=== PATIENT | female | born 1940 | race Caucasian/White ===

== ENCOUNTER → 2019-07-06 | Outpatient (CLI) | payer MEDICARE, BC ==
--- NOTE | 2019-07-06 12:56 | CT ---
EXAMINATION TYPE: CT chest w con DATE OF EXAM: 07/06/2019 COMPARISON: No films are available. Report from [facility] labeled with the patient' s name dated 06/28/2013 is reviewed. HISTORY: Solitary pulmonary nodule. CT DLP: 506.6 mGycm, Automated exposure control for dose reduction was used. CONTRAST: Performed injected with 100 mL of Isovue M300. TECHNIQUE: Axial images were obtained at 5 mm thick sections. Reconstructed images are reviewed on [employer] computer in the coronal plane. FINDINGS: Portion of the thyroid visualized is normal. There is a triangular area of increased density anterior left upper lobe. This measures approximately 3.9 x 3.8 cm in size. Series 4 image 19. Infectious etiology and neoplasm are within the differentia l. Follow-up to clearing is recommended. This may have been present previously by report. There is a 0.4 cm nodule in the periphery of the right lower lobe. This may have been present previou sly by report. No enlarged mediastinal or hilar adenopathy is evident. The ascending aorta diameter at the level o f the main pulmonary artery is 3.3 cm. The main pulmonary artery diameter at the bifurcation is 3.3 cm. There is a small hiatal hernia present. Limited CT sections are obtained through the upper abdomen. Abdomen is essentially unremarkable. IMPRESSIONS: 1. Focal infiltrate versus infiltrating mass anterior left upper lobe. Follow-up is recommended. This appears to been present in the prior report. 2. Suspected stable nodule posterior lateral right lung by report.
--- NOTE | 2019-07-07 15:01 | ECHOF ---
Referral Reason:R01.1 cardiac murmur MEASUREMENTS -------- HEIGHT: 175.3 cm WEIGHT: 108.9 kg BP: IVSd: 1.4 cm (0.6 - 1.1) LVIDd: 4.0 cm (3.9 - 5.3) LVPWd: 1.6 cm (0.6 - 1.1) IVSs: 2.0 cm LVIDs: 2.5 cm LVPWs: 1.9 cm LAESV Index (A-L): 38.72 ml/m Ao Diam: 2.9 cm (2.0 - 3.7) AV Cusp: 1.9 cm (1.5 - 2.6) LA Diam: 4.4 cm (2.7 - 3.8) MV EXCURSION: 15.009 mm (> 18.000) MV EF SLOPE: 89 mm/s (70 - 150) EPSS: 0.4 cm MV E Leroy: 1.08 m/s MV DecT: 212 ms MV A Leroy: 1.00 m/s MV E/A Ratio: 1.08 RAP: 5.00 mmHg RVSP: 35.81 mmHg FINDINGS -------- Sinus rhythm. This was a technically difficult study with suboptimal apical views. The left ventricular size is normal. There is moderate concentric left ventricular hypertrophy. O verall left ventricular systolic function is normal with, an EF between 60 - 65 %. Left ventricular fillimg pressure cannot be estimated due to severe mitral annular calcification. The right ventricle is normal in size. LA is moderately dilated 34-39 ml/m2 The right atrial size is normal. 5.0mg of Lumason was utilized for enhancement of images Interatrial and interventricular septum intact. The aortic valve is trileaflet and appears structurally normal. There is no evidence of aortic regu rgitation. There is no evidence of aortic stenosis. The mitral valve leaflets are mildly thickened. Severe mitral annular calcification present. Mode rate mitral regurgitation is present. Mild tricuspid regurgitation present. There is borderline pulmonary artery hypertension. The righ t ventricular systolic pressure, as measured by Doppler, is 35.81mmHg. Trace/mild (physiologic) pulmonic regurgitation. The aortic root size is normal. IVC Not well visulized. There is no pericardial effusion. CONCLUSIONS -------- 1. Sinus rhythm. 2. This was a technically difficult study with suboptimal apical views. 3. The left ventricular size is normal. 4. There is moderate concentric left ventricular hypertrophy. 5. Overall left ventricular systolic function is normal with, an EF between 60 - 65 %. 6. Left ventricular fillimg pressure cannot be estimated due to severe mitral annular calcification. 7. The right ventricle is normal in size. 8. LA is moderately dilated 34-39 ml/m2 9. The right atrial size is normal. 10. 5.0mg of Lumason was utilized for enhancement of images 11. Interatrial and interventricular septum intact. 12. The aortic valve is trileaflet and appears structurally normal. 13. There is no evidence of aortic regurgitation. 14. There is no evidence of aortic stenosis. 15. The mitral valve leaflets are mildly thickened. 16. Severe mitral annular calcification present. 17. Moderate mitral regurgitation is present. 18. Mild tricuspid regurgitation present. 19. There is borderline pulmonary artery hypertension. 20. The right ventricular systolic pressure, as measured by Doppler, is 35.81mmHg. 21. Trace/mild (physiologic) pulmonic regurgitation. 22. The aortic root size is normal. 23. IVC Not well visulized. 24. There is no pericardial effusion. ADAPTIVE PHYSICAL EDUCATOR: Shawanda Lucas RDCS
== END | disposition home or self-care (01) ==
LOC: RADECHMAIN 10:53
PROVIDERS: ATTEND Nurse Practitioner
DX: R91.1 Solitary pulmonary nodule (principal); I08.1 Rheumatic disorders of both mitral and tricuspid valves
CPT/HCPCS: 82565; 84520; 71260; 36415; C8929; Q9950; Q9967; 93306

== ENCOUNTER → 2019-09-25 | Outpatient (CLI) | payer MEDICARE, BC ==
--- NOTE | 2019-09-25 12:33 | CT ---
EXAMINATION TYPE: CT chest w con DATE OF EXAM: 09/25/2019 COMPARISON: July 06, 2019 HISTORY: abn findings of lung field CT DLP: 488.2 mGycm Automated exposure control for dose reduction was used. CONTRAST: CT scan of the chest is performed with IV Contrast, patient injected with 80 mL of Isovue 300. FINDINGS: LUNGS: There is a stable wedge-shaped area of opacity left upper lobe which is likely in the basis of postinflammatory change rather than active infection or neoplasm. Follow-up in 6 months is advised a s a precautionary measure. Stable calcified right lower lobe pulmonary nodule measures 4 mm. No addit ional nodules seen. No pleural effusion or airspace consolidation identified. MEDIASTINUM: There are no greater than 1 cm hilar or mediastinal lymph nodes. No pericardial effusi on is seen. Thoracic aorta is of normal caliber. The heart is not enlarged. UPPER ABDOMEN: No significant abnormality appreciated. OTHER: No additional significant abnormality is seen. IMPRESSION: There is a stable wedge-shaped area of opacity left upper lobe which is likely in the ba sis of postinflammatory change rather than active infection or neoplasm. Follow-up in 6 months is adv ised as a precautionary measure.
== END | disposition home or self-care (01) ==
LOC: RADCTMAIN 10:13
PROVIDERS: ATTEND Family Medicine
DX: R91.8 Other nonspecific abnormal finding of lung field (principal)
CPT/HCPCS: 82565; 84520; 71260; 36415; Q9967

== ENCOUNTER → 2020-04-07 | Outpatient (CLI) | payer MEDICARE, BC ==
--- NOTE | 2020-04-07 12:07 | CT ---
EXAMINATION TYPE: CT chest w con DATE OF EXAM: 04/07/2020 COMPARISON: 520 HISTORY: follow up to lung nodule CT DLP: 659 mGycm Automated exposure control for dose reduction was used. CONTRAST: CT scan of the chest is performed with IV Contrast, patient injected with 80 mL of Isovue 300. 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 No focal consolidation. No volume loss or pleural effusion. Granuloma right lower lobe. There is no pleural e ffusion or pneumothorax seen. The tracheobronchial tree is patent. MEDIASTINUM: There are no greater than 1 cm hilar or mediastinal lymph nodes. No pericardial effusi on is seen. Thoracic aorta is of normal caliber. The heart is not enlarged. Small sliding-type hiata l hernia is noted. UPPER ABDOMEN: No significant abnormality appreciated. OTHER: No additional significant abnormality is seen. 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
== END | disposition home or self-care (01) ==
LOC: RADCTMAIN 10:43
PROVIDERS: ATTEND Nurse Practitioner
DX: J84.10 Pulmonary fibrosis, unspecified (principal)
CPT/HCPCS: 82565; 84520; 71260; 36415; Q9967

== ENCOUNTER → 2020-12-11 | Outpatient (CLI) | payer MEDICARE, BC ==
--- NOTE | 2020-12-11 15:08 | XR ---
Lumbosacral spine HISTORY: Back pain, M 54.5 5 views of the lumbar spine There is a levoscoliosis centered at L3-4. Multilevel spondylosis is present. There is no evident spo ndylolysis or spondylolisthesis. Loss of disc height is present at intervertebral levels, vacuum phen omenon present at L3-4, L4-5. Bone mineralization is reduced. Sclerosis present in the posterior [place] ents of the lower lumbar spine. Apical scarring calcifications present in the aorta iliac distributio n. impression: Osteopenia, degenerative disc disease, facet arthropathy and scoliosis.
== END | disposition home or self-care (01) ==
LOC: RADXRMAIN 11:31
PROVIDERS: ATTEND Family Medicine
DX: M51.36 Other intervertebral disc degeneration, lumbar region (principal); M85.88 Other specified disorders of bone density and structure, other site; M46.96 Unspecified inflammatory spondylopathy, lumbar region; M41.86 Other forms of scoliosis, lumbar region; Z85.3 Personal history of malignant neoplasm of breast
CPT/HCPCS: 72110

== ENCOUNTER → 2024-03-01 | Outpatient (CLI) | payer MEDICARE ==
--- NOTE | 2024-03-01 14:19 | US ---
EXAMINATION TYPE: US arterial LE single level DATE OF EXAM: 03/01/2024 1:56 PM CLINICAL INDICATION: Female, 83 years old with history of I73.9 PVD M79.605 PAIN IN LEFT LEG; muscle cramps at night History of: Smoker: No Hypertension: Yes Diabetic: No Hyperlipidemia: Yes TIA/CVA: No Previous Vascular Surgery: No CAD: No IN: No Vascular Ulcers: Right anterior calf Claudication: No Gangrene: No Doppler Waveforms: Right: Multiphasic Left: Multiphasic Right Brachial Pressure: 142 Left Brachial Pressure: 145 Ankle-Brachial Indices: Right: Not able to occlude Left: Not able to occlude (Vessel hardening > 1.4; Normal 0.9 - 1.4, Moderate 0.7 - 0.9, Severe 0.5-0.7) Toe Brachial Indices: Right: Not done Left: Not done IMPRESSION: Bilateral lower extremity multiphasic waveforms however unable to occlude to obtain ankl e brachial indices. This may be related to hypertension and/or vascular calcification. This could be further evaluated with CTA. [facility], , 03/01/2024 2:17 PM
== END | disposition home or self-care (01) ==
LOC: RADUSWWP 13:25
PROVIDERS: ATTEND Family Medicine
CPT/HCPCS: 93922

== ENCOUNTER 2024-12-03 11:31 | Day surgery (SDC) | payer MEDICARE ==
[2024-11-28 15:15] VITALS: BMI 34.0
[~2024-12-03 11:31] MED LIST: LACTATED RINGERS 1,000 ML IV SCH; LIDOCAINE 1% (10MG/ML) FOR IV START INTRADERMA PRN
[2024-12-03 12:38] VITALS: TEMP 98.1
[2024-12-03] MEDS: IV FLUID CONTINUATION 1,000 ML IV ONE (12:45)
[2024-12-03] MEDS: SODIUM CHLORIDE 0.9% 500 ML 500 ML IV SCH (12:46)
[2024-12-03] MEDS ORDERED: PROPOFOL 10 MG/ML 20 ML VIAL IV ONE (12:59)
[2024-12-03] MEDS ORDERED: ATROPINE SULFATE 0.1 MG/ML 10ML SYRINGE ONE (12:59)
[2024-12-03] MEDS: BENZOCAINE SPRAY 1 EACH TOPICAL STA (13:02)
--- NOTE | 2024-12-03 14:21 | P.TEE ---
Date of Procedure: 12/03/24 Description of Procedure(s): Procedure performed: 1. Transesophageal Echocardiogram. 2. Synchronized Cardioversion. 3. Bubble study indication Indications: Persistent atrial fibrillation Consent: I have discussed the risks, benefits and alternative therapies for the above-mentioned procedure. The patient has indicated understanding and acceptance of the risks of the procedure. Signed consent was obtained and was placed in the paper chart. Moderate conscious sedation: Moderate conscious sedation was administered by anesthesia, see separate report. Procedural Steps: Timeout was performed in usual fashion. Patient's heart rate, blood pressure, oxygen saturation and ECG were monitored. After achieving appropriate moderate conscious sedation, GUILHERME GUILHERME probe was advanced without difficulty and without any immediate complications to the esophagus. GUILHERME study was performed with color flow doppler, pulsed wave doppler and continuous wave doppler. Agitated saline bubbles were injected to assess for any intra-atrial shunt. The probe was then removed. SYNCHRONIZED CARDIOVERSION After making sure that there is no evidence of intracardiac thrombus, pacer pads were placed and secured on patients chest and back. Synchronized cardioversion was perfromed using 200 J. 1 attempt. Sinus bradycardia was a resultant rhythm with heart rate of 42 bpm, 0.5 mg of atropine was given. Patient tolerated the procedure well. Patient was transferred to the post procedure area in stable and satisfactory condition. Complications: none Blood loss: none FINDINGS Left Atrium: Moderate left atrial dilation. No evidence of mass or thrombus seen Left Atrial Appendage: No evidence of thrombus or mass seen in TOÑA. Bilateral atrial appendage Inter atrial septum: Intact inter-atrial septum. No evidence of atrial septal defect or patent foramen ovale on color doppler. No [id number] intracardiac shunting on bubble study noticed. Left Ventricle: Normal global LV size and systolic function Right Atrium: Normal overall RA size Right Ventricle: Normal global RV size and systolic function Aortic Valve: Trileaflet aortic valve with mild leaflet thickening. No significant stenosis or regurgitation by color Doppler Mitral Valve: Mitral annular calcification with heavy degenerative calcification noted at posterior mitral leaflet base causing its restriction. Moderate to severe eccentric mitral regurgitation, directed anteromedially. Pulmonic Valve: Not well visualized. Tricuspid Valve: Structurally normal, mild tricuspid regurgitation. Ascending aorta, Aortic root and Aortic arch: Mild intimal thickening. Descending aorta: Mild intimal thickening. Trace pericardial effusion CONCLUSION: No evidence of thrombus in left atrium or left atrial appendage Moderate left atrial dilatation Moderate to severe eccentric mitral regurgitation due to restricted posterior mitral leaflet due to heavy degenerative calcification at posterior mitral leaflet base Preserved LV size systolic function Trace to small pericardial effusion Plan Decrease metoprolol to 25 mg twice daily, Add colchicine 0.6 mg daily for 60 days Fransisco Tamez MD, RPVI, FACC Thank you for allowing [facility] to participate in this patient's care. Feel free to reach out in case of any followup questions.
[2024-12-03 14:27] VITALS: RESP 18
[2024-12-03 15:08] VITALS: BP 119/76; PULSE 65
== END 2024-12-03 15:18 | disposition home or self-care (01) ==
LOC: OR 11:31
PROVIDERS: ATTEND Student in an Organized Health Care Education/Training Program
DX: I48.19 Other persistent atrial fibrillation (principal); I34.0 Nonrheumatic mitral (valve) insufficiency; I31.39 Other pericardial effusion (noninflammatory); I10 Essential (primary) hypertension; E78.5 Hyperlipidemia, unspecified; E66.9 Obesity, unspecified; F32.A Depression, unspecified; M19.90 Unspecified osteoarthritis, unspecified site; Z68.34 Body mass index [BMI] 34.0-34.9, adult; Z79.01 Long term (current) use of anticoagulants; Z79.02 Long term (current) use of antithrombotics/antiplatelets; Z79.899 Other long term (current) drug therapy
CPT/HCPCS: 93312; 93320; 93325; 92960; J0461; J2704